=== PATIENT | male | born 1990 | race Caucasian/White ===

== ENCOUNTER 2016-04-28 20:49 | Emergency (ER) | payer OTHER ==
--- NOTE | 2016-04-29 05:46 | ED NURSING NOTES ---
Clinical Report - Nurses [facility] [place] [address] 04/28/2016 20:51 Patient: SAADIA BERG TRIAGE Triage time 20:53 Apr 28 2016. Acuity: LEVEL 2. Chief Complaint: DRUG OVERDOSE. 20:59 04/28/16. Alert. No acute distress. SEPSIS SCREEN: Sepsis Screen. Negative (no infection suspected/documented). SCHUYLER COMA SCORE: Schuyler Coma Scale: 15- eyes open spontaneously (4); best verbal response- oriented x 4 (5); best motor response- obeys commands (6). --20:59 Germaine Perez 20:59 04/28/16. BP: 123/64. HR: 131. RR: 12. O2 saturation: 87%. Temp: 99.5 F. Pain level now 0/10. --20:59 Germaine Perez. Weight: 74.8 kg stated. Height/Length: 70 inches Per Patient. BMI: 23.7. --20:57 Germaine Perez. Medications Novir. Reyataz Oral. Truvada Oral. --20:55 Germaine Perez Suboxone Sublingual. --20:55 Germaine Perez Citalopram Hydrobromide Oral. --20:56 Germaine Perez. Medication/allergy information source: the patient. --20:59 Germaine Perez. Allergies None. --20:56 Germaine Perez. History Arrived by private vehicle. Historian: patient. Accompanied by family. Primary physician (Leeann). This occurred just prior to arrival. ( Pt reports that he took heroin and suboxone today. Aunt reports that patient was "turning blue" and not breathing. Pt reports he shoots up heroin. 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 No suicidal thoughts. PAST MEDICAL HX: Immunizations: up-to-date. SOCIAL HX: Light tobacco smoker (cigarette)- less than 1/2 a pack per day. History of IV drug use: heroin. No alcohol use. FALL RISK ASSESSMENT: Fall risk assessment completed. No fall risk identified. NUTRITIONAL RISK ASSESSMENT: The nutritional risk assessment revealed no deficiencies. FUNCTIONAL ASSESSMENT: Functional assessment: no impairments noted. LEARNING NEEDS ASSESSMENT: The learning needs assessment revealed no barriers. SKIN INTEGRITY ASSESSMENT: Skin integrity risk assessment completed. No skin integrity risk identified. --20:59 Germaine Perez. PROBLEMS: Abscess. Dysuria. Diarrhea. Substance Abuse. HIV Illness. --20:56 Germaine Perez. Assessment The patient states feels the same. --20:59 Gremaine Perez. Interventions ID band on patient. --20:59 Germaine Perez. PHYSICAL ASSESSMENT 21:00 04/28/16. Ambulatory to room. Patient gowned. ( Pupils 1 mm on both sides. Pt drowsy, needs reminders to stay awake and to take deep breathes.). GENERAL / NEURO / PSYCH: Alert. Oriented X 4. Appears in no acute distress. Patient appears calm and cooperative. Gag reflex present. Speech within normal limits. RESPIRATORY: Mild respiratory distress. Respirations not labored. CVS: Cardiac rhythm: sinus tachycardia. Capillary refill less than 2 seconds. GI / : Abdomen soft and nontender. SKIN: Skin intact. Skin is warm and dry. Skin color is within normal limits. Affect appears within normal limits. --21:00 Germaine Perez. NURSING PROGRESS NOTES :04/28/16. The plan of care for this patient has been created. Oxygen administered by nasal cannula at 2 liters. monitoring tech, pulse oximeter, end tidal CO2 monitor and NIBP monitor placed on patient; monitoring tech- Lead II and V5; monitor alarms on. Patient gowned. Head of bed elevated. Reassurance given. Suicide precautions initiated: a safety sweep of the room is ongoing. Room made safe and stripped of hazardous items. Frequent one on one supervision, family at bedside. Two patient identifiers checked. Call light placed in reach. Side rails up x 1. Bed placed in lowest position. Brakes of bed on. Patient ready for evaluation- chart flagged and ED physician notified. --21: Germaine Perez 21:05 04/28/16. BP: 127/72. HR: 132. RR: 8. O2 saturation: 95% on nasal cannula at 4 liters/minute. End tidal CO2: 55 mmHg. Pain level now: 0/10. --21:06 Germaine Perez 21:04/28/2016 Site #1 started via IV in the right antecubital space with an 20g angiocath, with aseptic technique and good blood return; one attempt. Blood drawn: rainbow set. Labeled in the presence of the patient and sent to the lab. Saline lock flushed with 10 mL saline (Done by RN. Tea). --21:07 Germaine Perez 21:04/28/2016 Narcan (Naloxone HCl) IVP 0.4 mg given over 15 second(s) via site #1. Allergies verified and confirmed 5 rights. IV patency established. IV site checked: no pain, redness, or swelling. IV flushed thoroughly pre- and post-medication administration. IVP given by RN. --21:11 Germaine Perez 21:04/28/16. BP: 105/64. HR: 117. RR: 16. O2 saturation: 99% on room air. Pain level now: 0/10. --21:11 Germaine Perez 21:28 04/28/2016 Started bag #1 1000 mL IV Fluids IV NS (Saline); at 1000 mL/hr over 1 hour(s) via site #1 via IV pump. Allergies verified and confirmed 5 rights. IV patency established. IV site checked: no pain, redness, or swelling. IV flushed thoroughly pre- and post-medication administration. --21:38 Germaine Perez 22:04/28/16. BP: 121/64. HR: 106. RR: 16. O2 saturation: 95% on room air. --22:12 Germaine Perez 22:23 04/28/16. ( Pt attempted to collect urine. States that he is unable "I don't have to pee."). --22:53 Germaine Perez 22:54 04/28/16. ( Pt still attempting to provide urine sample.). --22:54 Germaine Perez 22:54 04/28/16. ( Grandmother and aunt remain at bedside.). --22:54 Germaine Perez 22:58 04/28/16. BP: 120/62. HR: 104. O2 saturation: 96%. --22:59 Germaine Perez Care transferred and report received (from Germaine, HERMAN). --23:06 Fatmata Apodaca R.N. 23:00 04/28/16. BP: 123/62. HR: 100. RR: 18. O2 saturation: 96% on room air. Pain level now: 0/10. --23:29 Fatmata Apodaca R.N. pt given another cup of water with isabel crackers. family at bedside. --23:29 Fatmata Apodaca R.N. 22:30 04/28/2016 IV Fluids IV NS Discontinued: bag #1 completed. Total amount infused: 1000 ml mL. IV patency established. IV site checked: no pain, redness, or swelling. IV flushed thoroughly. (by HERMAN Herron). --23:42 Fatmata Apodaca R.N. 23:30 04/28/2016 Started bag #2 1000 mL IV Fluids IV NS (Saline); at 999 mL/hr over 1 hour(s) via site #1 via IV pump. Allergies verified and confirmed 5 rights. IV patency established. IV site checked: no pain, redness, or swelling. IV flushed thoroughly pre- and post-medication administration. --23:30 Fatmata Apodaca R.N. <<STRICKEN ENTRY-- 00:00 04/29/16. BP: 122/76. HR: 110. RR: 18. O2 saturation: 97% at 2 liters/minute. O2 started via nasal cannula. Pain level now: 0/10. --00:51 Fatmata Apodaca R.N. --END STRIKE>> Correction. --00:53 Fatmata Apodaca R.N. 23:30 04/28/16. BP: 122/76. HR: 110. RR: 18 (unlabored). O2 saturation: 97% at 2 liters/minute. O2 started via nasal cannula. --00:54 Fatmata Apodaca R.N. 00:00 04/29/16. BP: 123/72. HR: 105. RR: 20 (unlabored). O2 saturation: 96% at 2 liters/minute. O2 started via nasal cannula. --00:54 Fatmata Apodaca R.N. 00:30 pt's family at bedside waiting for PAT. --00:55 Fatmata Apodaca R.N. 00:30 04/29/16. BP: 129/53. HR: 100. RR: 18 (unlabored). O2 saturation: 96% on room air. Pain level now: 0/10. --00:55 Fatmata Apodaca R.N. 02:00 Yaz, from [facility], in to eval pt. with pt's family at bedside. --02:03 Fatmata Apodaca R.N. urine collected @ 23:58. labeled in pt room, sent to lab. --00:09 Fatmata Apodaca R.N. 01:30 04/29/16. BP: 117/88. HR: 92. RR: 18 (unlabored). O2 saturation: 95% on room air. --02:28 Fatmata Apodaca R.N. 02:30 pt's agreed to go INPT for help after talking with family. --03:01 Fatmata Apodaca R.N. 03:16 04/29/16. BP: 106/51. HR: 72. RR: 16 (unlabored). O2 saturation: 95% on room air. Pain level now: 0/10. --03:17 Fatmata Apodaca R.N. pt up to bathroom supervised. --03:17 Fatmata Apodaca R.N. IV retaped. --03:18 Fatmata Apodaca R.N. 00:30 04/29/2016 IV Fluids IV NS Discontinued: bag #2 completed. Total amount infused: 1000 ml mL. IV patency established. IV site checked: no pain, redness, or swelling. IV flushed thoroughly. --03:33 Fatmata Apodaca R.N. pt resting with partner at bedside. --04:10 Fatmata Apodaca R.N. 04:00 04/29/16. BP: 107/47. HR: 80. RR: 16 (unlabored). O2 saturation: 94% on room air. --04:42 Fatmata Apodaca R.N. 05:00 04/29/16. BP: 105/61. HR: 72. RR: 16 (unlabored). O2 saturation: 95% on room air. Temp: deferred. Pain level now: 0/10. --05:18 Fatmata Apodaca R.N. pt sleeping with HOB elevated. pt's partner at bedside. --05:18 Fatmata Apodaca R.N. 05:45 04/29/16. BP: 106/60. HR: 75. RR: 18 (unlabored). O2 saturation: 95% on room air. Temp: deferred. Pain level now: 4/10. Additional comments: pt c/o headache. --06:29 Fatmata Apodaca R.N. 05:55 04/29/2016 Ibuprofen PO Tablets 600 mg given. Allergies verified and confirmed 5 rights. --06:30 Fatmata Apodaca R.N. DISPOSITION / DISCHARGE 05:55 04/29/2016 Site #1 removed upon discharge. Bandage applied. --06:32 Fatmata Apodaca R.N. Departure time: 0555. Condition at departure: improved. No learning barriers present. Discharge instructions provided and reviewed with the patient. Patient verbalized understanding. Written instructions provided in Indonesian. The patient was discharged by the physician. He was discharged home and accompanied by campus recruiting intern. He left the Emergency Department ambulatory and via private vehicle. Real Estate Loan Officer driving. Medication list reviewed and validated with the patient. --06:32 Fatmata Apodaca R.N. 05:55 04/29/16. BP: deferred. HR: deferred. RR: deferred. O2 saturation: deferred. Temp: deferred. Pain level now deferred. --06:32 Fatmata Apodaca R.N. Locked/Released at 04/29/2016 6:32 by Fatmata Apodaca R.N.
--- NOTE | 2016-04-29 05:46 | ED CLINICAL REPORT ---
Clinical Report - Physicians/Mid Levels [facility] [address] [place] [address] 04/28/2016 20:51 Patient: SAADIA BERG Time Seen: 2100. Arrived- By private vehicle. Historian- patient and family. HISTORY OF PRESENT ILLNESS Chief Complaint: INTOXICATED. Wants to stop drug use. Wants to enter detox program. Symptoms started today. Duration of substance abuse- years. Substances abused: Marijuana and heroin. Last drug use consisted of heroin. (at about 1999--pt had already taken his Suboxone, then used heroin on top of that. Family noticed pt was somnolent and pale, though they do state that pt was arousable. Pt was able to present to the emergency dept in ambulatory condition.). No fever, chills, nausea, vomiting or diarrhea. No abdominal pain, tremors, seizure, agitation or delusions. No hallucinations or suicidal thoughts. Not confused or paranoid. Has not been depressed. The symptoms are described as moderate (PT continued breathing, but appeared pale and steiner, per family.). No injuries noted. Similar symptoms previously: Recent medical care: ( PT was in treatment in January and February, but family states he was d/c after only 45 days (was supposed to be a 90-day program, per family). Mom states pt has desired treatment again, but has been told his insurance doesn't cover this.). Not recently seen/assessed. REVIEW OF SYSTEMS The patient has not had weight loss. No sweats, headache, dizziness, weakness or chest pain. No palpitations, black stools, numbness, bloody stools or sore throat. No cough, difficulty breathing, difficulty with urination, skin abscess or joint pain. No enlarged lymph nodes. No difficulty walking. All systems otherwise negative, except as recorded above. PAST HISTORY Problems: Abscess. Substance Abuse. HIV Illness. Additional Surgeries: no known surgeries. Medications: Citalopram Hydrobromide Oral. Suboxone Sublingual. Novir. Reyataz Oral. Truvada Oral. Allergies: None. SOCIAL HISTORY Smoker- current status unknown. History of drug use: heroin, marijuana. No alcohol use. ADDITIONAL NOTES The nursing notes have been reviewed. PHYSICAL EXAM Vital Signs: 04/28/2016 20:59 BP: 123/64. HR: 131. RR: 12. O2 saturation: 87%. Temp: 99.5 F. Have been reviewed. Appearance: No acute distress. Lethargic. (Pt arouses but quickly falls back asleep in mid-sentence. He does answer questions appropriately, while awake.). Head: Head atraumatic. Eyes: Pupils equal, round and reactive to light. ENT: Normal ENT inspection. Airway intact. Moist mucous membranes. Neck: Normal inspection. CVS: Normal heart rate and rhythm. Heart sounds normal. Pulses normal. Respiratory: No respiratory distress. Breath sounds normal. Abdomen: Soft and nontender. Back: Normal inspection. Skin: Skin warm and dry. Normal skin color. No rash. Normal skin turgor. Extremities: Extremities exhibit normal ROM. No lower extremity edema. Neuro: Alertness is decreased(drowsy). Mood/affect normal. Cranial nerves normal (as tested). No motor deficit. No sensory deficit. (Speech is mildly slurred (seems consistent with pt's level of drowsiness).). LABS, X-RAYS, AND EKG Rhythm Strip #1: Time: (2100). Rate= 113. Sinus tachycardia. Regular rhythm. Narrow QRS complexes. No ectopy. Conduction normal. Normal ST segments and T waves. The study was interpreted by me. Laboratory Tests: CBC w Diff: (CESAR: 04/28/2016 21:02) ( MsgRcvd 04/28/2016 21:31) Final results Test Result Flag Units (Reference) WHITE BLOOD COUNT 15.5 H K/uL (4.5-11.5) RED BLOOD COUNT 4.47 L M/uL (4.50-5.90) HEMOGLOBIN 13.0 L gm/dL (13.5-17.5) HEMATOCRIT 38.7 L % (41.0-53.0) MEAN CELL VOLUME 87 fL (80-100) MEAN CORPUSCULAR HGB 29 pg (26-34) MEAN CORPUSCULAR HGB CONC 34 g/dL (31-37) RED CELL DISTRIBUTION WIDTH 12.9 % (11.6-14.8) PLATELET COUNT 336 K/uL (150-400) NEUTROPHIL % 75.2 H % (50-75) LYMPH % 18.0 L % (25-40) MONO % 6.3 % (3-14) EOSINOPHIL % 0.3 % (0-4) BASOPHIL % 0.2 % (0-2) Urine Drug Screen: (CESAR: 04/28/2016 23:58) ( [facility] [place] Final results Test Result Flag Units (Reference) AMPHETAMINE/METHAMPHETAMINE NEGATIVE (NEGATIVE) BARBITURATE NEGATIVE (NEGATIVE) BENZODIAZEPINE NEGATIVE (NEGATIVE) CANNABINOID POSITIVE H (NEGATIVE) COCAINE NEGATIVE (NEGATIVE) ECSTASY NEGATIVE (NEGATIVE) METHADONE NEGATIVE (NEGATIVE) OPIATE POSITIVE H (NEGATIVE) The urine drug screen is a qualitative screening test fordrug overdose and abuse. All screen results should beconsidered as presumptive.Drugs screened for are as follows:BenzodiazepinesCocaineAmphetamines/MetamphetaminesTHC (Tetrahydrocannabinol)OpiatesBarbituratesEcstasyMethadonePositive results are unconfirmed. For confirmation, notifythe lab for the specimen to be sent to the reference lab.All confirmations must be performed by a differentmethodology.The ingestion of natural herbal and plant productscontaining Ephedra/Ephedra metabolites can produce in urineone or more substances capable of cross reacting withamphetamine/methamphetamine immunoassays. These testsprovide a preliminary result only. A more specificalternative chemical method must be used to obtain aconfirmed analytical result. CMP: (CESAR: 04/28/2016 21:02) ( NjgRcvd 04/28/2016 21:41) Final results Test Result Flag Units (Reference) GLUCOSE 128 H mg/dL (70-110) BUN 21 H mg/dL (7-18) CREATININE 1.6 H mg/dL (0.6-1.3) Estimated GFR 57.22 mL/min Estimated GFR- >60 mL/min Note: Persistent reduction over 3 months in eGFR<60 mL/min/1.73 m2 defines CKD. Patients with eGFR values>=60 mL/min/1.73 m2 may also have CKD if evidence ofpersistent proteinuria. Additional information may be foundat www.[email or web address].org. SODIUM 143 mmol/L (136-145) POTASSIUM 3.9 mmol/L (3.5-5.1) CHLORIDE 104 mmol/L (98-107) CARBON DIOXIDE 28 mmol/L (21-32) CALCIUM 8.2 L mg/dL (8.5-10.1) TOTAL PROTEIN 7.7 g/dL (6.4-8.2) ALBUMIN 4.3 g/dL (3.3-5.0) BILIRUBIN, TOTAL 0.7 mg/dL (0.0-1.0) ALKALINE PHOSPHATASE 99 U/L (46-116) AST (SGOT) 28 U/L (15-37) ALT (SGPT) 27 U/L (12-78) ETHYL ALCOHOL <3 L mg/dL (3-10) THYROID STIMULATING HORMONE 12.859 H uIU/mL (0.34-3.74) . Pulse Oximetry: 04/28/2016 20:59 O2 saturation: 87%. (FIO2 - room air). Interpretation: hypoxemia. Pulse Oximetry #2: 04/28/2016 21:05 O2 saturation: 95%. (FIO2-2 liter/min nasal cannula). Interpretation: normal. PROGRESS AND PROCEDURES Course of Care: Pt was given 0.4 mg of Narcan IV, with good response. Pt became alert, with clear speech, but did not exhibit vomiting or agitation (other than pulling his oxygen off and stating he did not want to be here). Pt remained calm in the ED, and without further deterioration. Pt was observed for several hours, and ultimately, evaluated by the mental health clinician, who did try to get him in to a facility for detox. However, no beds were available for any of the options that would work for him. At this point, it was discussed with the family that the pt would need to continue as an outpatient to seek options for help with his drug abuse. Pt initially had stated that he preferred outpatient care, but with his family's influence, stated that he would be willing to try inpatient again. Pt has been advised to follow up for his elevated TSH, to determine the reason for this, and the appropriate treatment. Patient counseled in person regarding the patient's stable condition, test results, diagnosis and need for follow-up. Concerns were addressed. Old medical records reviewed. Disposition: Discharged. Condition: stable and improved. CLINICAL IMPRESSION Accidental multi-drug overdose with heroin (suboxone). Elevated TSH, possible hypothyroidism. INSTRUCTIONS (We have explored all possible inpatient options in the area, and none are available for tonight. Please follow up, as planned, for outpatient support.). Warnings: GENERAL WARNINGS: Return or contact your physician immediately if your condition worsens or changes unexpectedly, if not improving as expected, or if other problems arise. Your Current Medications: CONTINUE TAKING THE FOLLOWING MEDICATIONS: Citalopram Hydrobromide Oral. Novir*. Reyataz Oral. Suboxone Sublingual. Truvada Oral. Follow-up: Follow up with your doctor as needed. Understanding of the discharge instructions verbalized by patient. (Electronically signed by Lena Gonzalez MD 05/03/2016 17:30)
--- NOTE | 2016-04-29 05:46 | ED NURSING NOTES ---
Clinical Report - Nurses [facility] [place] [address] 04/28/2016 20:51 Patient: SAADIA BERG TRIAGE Triage time 20:53 Apr 28 2016. Acuity: LEVEL 2. Chief Complaint: DRUG OVERDOSE. 20:59 04/28/16. Alert. No acute distress. SEPSIS SCREEN: Sepsis Screen. Negative (no infection suspected/documented). SCHUYLER COMA SCORE: Schuyler Coma Scale: 15- eyes open spontaneously (4); best verbal response- oriented x 4 (5); best motor response- obeys commands (6). --20:59 Germaine Perez 20:59 04/28/16. BP: 123/64. HR: 131. RR: 12. O2 saturation: 87%. Temp: 99.5 F. Pain level now 0/10. --20:59 Germaine Perez. Weight: 74.8 kg stated. Height/Length: 70 inches Per Patient. BMI: 23.7. --20:57 Germaine Perez. Medications Novir. Reyataz Oral. Truvada Oral. --20:55 Germaine Perez Suboxone Sublingual. --20:55 Germaine Perez Citalopram Hydrobromide Oral. --20:56 Germaine Perez. Medication/allergy information source: the patient. --20:59 Germaine Perez. Allergies None. --20:56 Germaine Perez. History Arrived by private vehicle. Historian: patient. Accompanied by family. Primary physician (Leeann). This occurred just prior to arrival. ( Pt reports that he took heroin and suboxone today. Aunt reports that patient was "turning blue" and not breathing. Pt reports he shoots up heroin. 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 No suicidal thoughts. PAST MEDICAL HX: Immunizations: up-to-date. SOCIAL HX: Light tobacco smoker (cigarette)- less than 1/2 a pack per day. History of IV drug use: heroin. No alcohol use. FALL RISK ASSESSMENT: Fall risk assessment completed. No fall risk identified. NUTRITIONAL RISK ASSESSMENT: The nutritional risk assessment revealed no deficiencies. FUNCTIONAL ASSESSMENT: Functional assessment: no impairments noted. LEARNING NEEDS ASSESSMENT: The learning needs assessment revealed no barriers. SKIN INTEGRITY ASSESSMENT: Skin integrity risk assessment completed. No skin integrity risk identified. --20:59 Germaine Perez. PROBLEMS: Abscess. Dysuria. Diarrhea. Substance Abuse. HIV Illness. --20:56 Germaine Perez. Assessment The patient states feels the same. --20:59 Germaine Perez. Interventions ID band on patient. --20:59 Germaine Perez. PHYSICAL ASSESSMENT 21:00 04/28/16. Ambulatory to room. Patient gowned. ( Pupils 1 mm on both sides. Pt drowsy, needs reminders to stay awake and to take deep breathes.). GENERAL / NEURO / PSYCH: Alert. Oriented X 4. Appears in no acute distress. Patient appears calm and cooperative. Gag reflex present. Speech within normal limits. RESPIRATORY: Mild respiratory distress. Respirations not labored. CVS: Cardiac rhythm: sinus tachycardia. Capillary refill less than 2 seconds. GI / : Abdomen soft and nontender. SKIN: Skin intact. Skin is warm and dry. Skin color is within normal limits. Affect appears within normal limits. --21:00 Germaine Perez. NURSING PROGRESS NOTES :04/28/16. The plan of care for this patient has been created. Oxygen administered by nasal cannula at 2 liters. property assessment monitor, pulse oximeter, end tidal CO2 monitor and NIBP monitor placed on patient; cardiac catheterization technologist- Lead II and V5; monitor alarms on. Patient gowned. Head of bed elevated. Reassurance given. Suicide precautions initiated: a safety sweep of the room is ongoing. Room made safe and stripped of hazardous items. Frequent one on one supervision, family at bedside. Two patient identifiers checked. Call light placed in reach. Side rails up x 1. Bed placed in lowest position. Brakes of bed on. Patient ready for evaluation- chart flagged and ED physician notified. --21: Germaine Perez 21:05 04/28/16. BP: 127/72. HR: 132. RR: 8. O2 saturation: 95% on nasal cannula at 4 liters/minute. End tidal CO2: 55 mmHg. Pain level now: 0/10. --21:06 Germaine Perez 21:04/28/2016 Site #1 started via IV in the right antecubital space with an 20g angiocath, with aseptic technique and good blood return; one attempt. Blood drawn: rainbow set. Labeled in the presence of the patient and sent to the lab. Saline lock flushed with 10 mL saline (Done by RN. Tea). --21:07 Germaine Perez 21:04/28/2016 Narcan (Naloxone HCl) IVP 0.4 mg given over 15 second(s) via site #1. Allergies verified and confirmed 5 rights. IV patency established. IV site checked: no pain, redness, or swelling. IV flushed thoroughly pre- and post-medication administration. IVP given by RN. --21:11 Germaine Perez 21:04/28/16. BP: 105/64. HR: 117. RR: 16. O2 saturation: 99% on room air. Pain level now: 0/10. --21:11 Germaine Perez 21:28 04/28/2016 Started bag #1 1000 mL IV Fluids IV NS (Saline); at 1000 mL/hr over 1 hour(s) via site #1 via IV pump. Allergies verified and confirmed 5 rights. IV patency established. IV site checked: no pain, redness, or swelling. IV flushed thoroughly pre- and post-medication administration. --21:38 Germaine Perez 22:04/28/16. BP: 121/64. HR: 106. RR: 16. O2 saturation: 95% on room air. --22:12 Germaine Perez 22:23 04/28/16. ( Pt attempted to collect urine. States that he is unable "I don't have to pee."). --22:53 Germaine Perez 22:54 04/28/16. ( Pt still attempting to provide urine sample.). --22:54 Germaine Perez 22:54 04/28/16. ( Grandmother and aunt remain at bedside.). --22:54 Germaine Perez 22:58 04/28/16. BP: 120/62. HR: 104. O2 saturation: 96%. --22:59 Germaine Perez Care transferred and report received (from Germaine, HERMAN). --23:06 Fatmata Apodaca R.N. 23:00 04/28/16. BP: 123/62. HR: 100. RR: 18. O2 saturation: 96% on room air. Pain level now: 0/10. --23:29 Fatmata Apodaca R.N. pt given another cup of water with isabel crackers. family at bedside. --23:29 Fatmata Apodaca R.N. 22:30 04/28/2016 IV Fluids IV NS Discontinued: bag #1 completed. Total amount infused: 1000 ml mL. IV patency established. IV site checked: no pain, redness, or swelling. IV flushed thoroughly. (by HERMAN Herron). --23:42 Fatmata Apodaca R.N. 23:30 04/28/2016 Started bag #2 1000 mL IV Fluids IV NS (Saline); at 999 mL/hr over 1 hour(s) via site #1 via IV pump. Allergies verified and confirmed 5 rights. IV patency established. IV site checked: no pain, redness, or swelling. IV flushed thoroughly pre- and post-medication administration. --23:30 Fatmata Apodaca R.N. <<STRICKEN ENTRY-- 00:00 04/29/16. BP: 122/76. HR: 110. RR: 18. O2 saturation: 97% at 2 liters/minute. O2 started via nasal cannula. Pain level now: 0/10. --00:51 Fatmata Apodaca R.N. --END STRIKE>> Correction. --00:53 Fatmata Apodaca R.N. 23:30 04/28/16. BP: 122/76. HR: 110. RR: 18 (unlabored). O2 saturation: 97% at 2 liters/minute. O2 started via nasal cannula. --00:54 Fatmata Apodaca R.N. 00:00 04/29/16. BP: 123/72. HR: 105. RR: 20 (unlabored). O2 saturation: 96% at 2 liters/minute. O2 started via nasal cannula. --00:54 Fatmata Apodaca R.N. 00:30 pt's family at bedside waiting for PAT. --00:55 Fatmata Apodaca R.N. 00:30 04/29/16. BP: 129/53. HR: 100. RR: 18 (unlabored). O2 saturation: 96% on room air. Pain level now: 0/10. --00:55 Fatmata Apodaca R.N. 02:00 Yaz, from [facility], in to eval pt. with pt's family at bedside. --02:03 Fatmata Apodaca R.N. urine collected @ 23:58. labeled in pt room, sent to lab. --00:09 Fatmata Apodaca R.N. 01:30 04/29/16. BP: 117/88. HR: 92. RR: 18 (unlabored). O2 saturation: 95% on room air. --02:28 Fatmata Apodaca R.N. 02:30 pt's agreed to go INPT for help after talking with family. --03:01 Fatmata Apodaca R.N. 03:16 04/29/16. BP: 106/51. HR: 72. RR: 16 (unlabored). O2 saturation: 95% on room air. Pain level now: 0/10. --03:17 Fatmata Apodaca R.N. pt up to bathroom supervised. --03:17 Fatmata Apodaca R.N. IV retaped. --03:18 Fatmata Apodaca R.N. 00:30 04/29/2016 IV Fluids IV NS Discontinued: bag #2 completed. Total amount infused: 1000 ml mL. IV patency established. IV site checked: no pain, redness, or swelling. IV flushed thoroughly. --03:33 Fatmata Apodaca R.N. pt resting with partner at bedside. --04:10 Fatmata Apodaca R.N. 04:00 04/29/16. BP: 107/47. HR: 80. RR: 16 (unlabored). O2 saturation: 94% on room air. --04:42 Fatmata Apodaca R.N. 05:00 04/29/16. BP: 105/61. HR: 72. RR: 16 (unlabored). O2 saturation: 95% on room air. Temp: deferred. Pain level now: 0/10. --05:18 Fatmata Apodaca R.N. pt sleeping with HOB elevated. pt's partner at bedside. --05:18 Fatmata Apodaca R.N. 05:45 04/29/16. BP: 106/60. HR: 75. RR: 18 (unlabored). O2 saturation: 95% on room air. Temp: deferred. Pain level now: 4/10. Additional comments: pt c/o headache. --06:29 Fatmata Apodaca R.N. 05:55 04/29/2016 Ibuprofen PO Tablets 600 mg given. Allergies verified and confirmed 5 rights. --06:30 Fatmata Apodaca R.N. DISPOSITION / DISCHARGE 05:55 04/29/2016 Site #1 removed upon discharge. Bandage applied. --06:32 Fatmata Apodaca R.N. Departure time: 0555. Condition at departure: improved. No learning barriers present. Discharge instructions provided and reviewed with the patient. Patient verbalized understanding. Written instructions provided in Uzbek. The patient was discharged by the physician. He was discharged home and accompanied by bilingual speech language pathologist. He left the Emergency Department ambulatory and via private vehicle. [employer] driving. Medication list reviewed and validated with the patient. --06:32 Fatmata Apodaca R.N. 05:55 04/29/16. BP: deferred. HR: deferred. RR: deferred. O2 saturation: deferred. Temp: deferred. Pain level now deferred. --06:32 Fatmata Apodaca R.N. Locked/Released at 04/29/2016 6:32 by Fatmata Apodaca R.N.
--- NOTE | 2016-04-29 05:46 | ED ORDER SUMMARY ---
..... Patient: SAADIA BERG OrderSheet [facility] VisitID: [id number] [place] [address] 25y, M Registration Date/Time: 04/28/2016 ORDER SHEET Weight: 74.8 kg (stated) Allergies: None GENERAL ORDERS: Youth Development Professional (Continuous) (:04/28/2016 Zen QUINONEZ) (21:17 IJurca ER Tech1) CBC w Diff Urgent (:04/28/2016 Zen QUINONEZ) (Ack 21:17 SONDRAurca ER Tech1) (21:21 EHassan R.N.) CMP Urgent (:04/28/2016 Zen QUINONEZ) (Ack 21:17 SONDRAurca ER Tech1) (21:21 EHassan R.N.) Urine Drug Screen Urgent (:04/28/2016 Zen QUINONEZ) (Ack 21:17 Luisa ER Tech1) (0:45 RCollier R.N.) Ethyl Alcohol Urgent (:04/28/2016 Zen QUINONEZ) (Ack 21:17 SONDRAurca ER Tech1) (21:21 EHassan R.N.) TSH Urgent (:04/28/2016 Zen QUINONEZ) (Ack 21:17 SONDRAurca ER Tech1) (21:21 EHassan R.N.) Oxygen (2 L/min) (NC) (:04/28/2016 Zen QUINONEZ) (21:17 SONDRAurcsusan ER Tech1) Pulse oximeter (:04/28/2016 Zen QUINONEZ) (21:17 IJurca ER Tech1) MEDICATION ORDERS: Ibuprofen PO 600 mg (NOW) (06:30 04/29/2016 HKone R.N. verbal order read back to Zen QUINONEZ) (6:30 MINHone R.N.) IV FLUIDS: Narcan IV 0.4 mg (HIGH ALERT MEDICATION, NOW) (21:10 04/28/2016 Nusrat verbal order read back to Zen QUINONEZ) (21:11 ASchmvenita) IV NS : initial bolus 1000 mL (1000 mL/hr), then none - (NOW) (:04/28/2016 Zen QUINONEZ) (Ack 21:18 Syeda R.NMack) (21:38 [facility]) IV NS : initial bolus 1000 mL (1000 mL/hr), then none - (NOW) (23:26 04/28/2016 Zen QUINONEZ) (23:30 Dennis R.N.) ORDER SHEET NOTES: [Electronically signed by Fatmata Apodaca R.N. (06:32 04/29/2016)] [Electronically signed by Lena Gonzalez MD (17:30 05/03/2016)] [Electronically locked/signed by Fatmata Apodaca R.N. (06:32 04/29/2016)]
--- NOTE | 2016-04-29 05:46 | ED ORDER SUMMARY ---
..... Patient: SAADIA BERG OrderSheet [facility] VisitID: [id number] [place] [address] 25y, M Registration Date/Time: 04/28/2016 ORDER SHEET Weight: 74.8 kg (stated) Allergies: None GENERAL ORDERS: Administrative Associate (Continuous) (:04/28/2016 Zen QUINONEZ) (21:17 IJurca ER Tech1) CBC w Diff Urgent (:04/28/2016 Zen QUINONEZ) (Ack 21:17 SONDRAurca ER Tech1) (21:21 EHassan R.N.) CMP Urgent (:04/28/2016 Zen QUINONEZ) (Ack 21:17 SONDRAurca ER Tech1) (21:21 EHassan R.N.) Urine Drug Screen Urgent (:04/28/2016 Zen QUINONEZ) (Ack 21:17 Luisa ER Tech1) (0:45 RCollier R.N.) Ethyl Alcohol Urgent (:04/28/2016 Zen QUINONEZ) (Ack 21:17 SONDRAurca ER Tech1) (21:21 EHassan R.N.) TSH Urgent (:04/28/2016 Zen QUINONEZ) (Ack 21:17 SONDRAurca ER Tech1) (21:21 EHassan R.N.) Oxygen (2 L/min) (NC) (:04/28/2016 Zen QUINONEZ) (21:17 SONDRAurcsusan ER Tech1) Pulse oximeter (:04/28/2016 Zen QUINONEZ) (21:17 IJurca ER Tech1) MEDICATION ORDERS: Ibuprofen PO 600 mg (NOW) (06:30 04/29/2016 HKone R.N. verbal order read back to Zen QUINONEZ) (6:30 MINHone R.N.) IV FLUIDS: Narcan IV 0.4 mg (HIGH ALERT MEDICATION, NOW) (21:10 04/28/2016 Nusrat verbal order read back to Zen QUINONEZ) (21:11 ASchmvenita) IV NS : initial bolus 1000 mL (1000 mL/hr), then none - (NOW) (:04/28/2016 Zen QUINONEZ) (Ack 21:18 Syeda R.NMack) (21:38 [facility]) IV NS : initial bolus 1000 mL (1000 mL/hr), then none - (NOW) (23:26 04/28/2016 Zen QUINONEZ) (23:30 Dennis R.N.) ORDER SHEET NOTES: [Electronically signed by Fatmata Apodaca R.N. (06:32 04/29/2016)] [Electronically signed by Lena Gonzalez MD (17:30 05/03/2016)] [Electronically locked/signed by Fatmata Apodaca R.N. (06:32 04/29/2016)]
--- NOTE | 2016-05-03 17:30 | ED DISCHARGE INSTRUCTIONS ---
Patient: SAADIA BERG General Instructions [facility] VisitID: [id number] [place] [address] 25y, M Registration Date/Time: 04/28/2016 Accidental multi-drug overdose with heroin (suboxone). INSTRUCTIONS (We have explored all possible inpatient options in the area, and none are available for tonight. Please follow up, as planned, for outpatient support.). Warnings: GENERAL WARNINGS: Return or contact your physician immediately if your condition worsens or changes unexpectedly, if not improving as expected, or if other problems arise. Your Current Medications: CONTINUE TAKING THE FOLLOWING MEDICATIONS: Citalopram Hydrobromide Oral. Novir*. Reyataz Oral. Suboxone Sublingual. Truvada Oral. Follow-up: Follow up with your doctor as needed. Understanding of the discharge instructions verbalized by patient. ADDITIONAL INFORMATION Accidental Ingestion:Non-Toxic [Adult] You have been evaluated and treated for taking too much of a medicine or swallowing a chemical product. There is no sign of toxic effect at this time. It is very unlikely that any new symptoms will appear. As a safeguard, you must be alert for symptoms during the next 24 hours (see below). The exact symptom will depend on what was swallowed. Home Care: If LIQUID CHARCOAL was given to neutralize what was swallowed, it will cause a black color to the stools for 1-2 days. Usually, a laxative (sorbitol) is given with charcoal to speed the removal of any toxins from the intestinal tract. This may cause diarrhea for up to 24 hours. If no laxative was given with charcoal, you may get constipated. If this occurs, you may take an pkif-fpx-jilgexw laxative such as Dulcolax pills or suppository. Prevention: Keep medicines, pesticides, and other household chemicals in their original containers. Clearly jd all harmful products if a different bottle is used. Follow Up with your doctor if all symptoms do not resolve within 24 hours or if constipation is not relieved by one or two doses of laxatives. Get Prompt Medical Attention if any of the following occur: Excess drowsiness or inability to be awakened Rapid heart beat, shakiness or seizure Fast breathing (over 25 breaths/minute) or slow breathing (less than 8 breaths/minute) Feeling shortness of breath Fever of 100.4F (38C) or higher, or as directed by your healthcare provider Vomiting or diarrhea for more than 24 hours Blood in stools or vomit (black or red color) Chest or abdominal pain Dizziness, weakness or fainting You have been given the following additional information: Overdose, Accidental (Adult) (Electronically signed by Lena Gonzalez MD 05/03/2016 17:30)
--- NOTE | 2016-05-03 17:30 | ED DISCHARGE INSTRUCTIONS ---
Patient: SAADIA BERG General Instructions [facility] VisitID: [id number] [place] [address] 25y, M Registration Date/Time: 04/28/2016 Accidental multi-drug overdose with heroin (suboxone). INSTRUCTIONS (We have explored all possible inpatient options in the area, and none are available for tonight. Please follow up, as planned, for outpatient support.). Warnings: GENERAL WARNINGS: Return or contact your physician immediately if your condition worsens or changes unexpectedly, if not improving as expected, or if other problems arise. Your Current Medications: CONTINUE TAKING THE FOLLOWING MEDICATIONS: Citalopram Hydrobromide Oral. Novir*. Reyataz Oral. Suboxone Sublingual. Truvada Oral. Follow-up: Follow up with your doctor as needed. Understanding of the discharge instructions verbalized by patient. ADDITIONAL INFORMATION Accidental Ingestion:Non-Toxic [Adult] You have been evaluated and treated for taking too much of a medicine or swallowing a chemical product. There is no sign of toxic effect at this time. It is very unlikely that any new symptoms will appear. As a safeguard, you must be alert for symptoms during the next 24 hours (see below). The exact symptom will depend on what was swallowed. Home Care: If LIQUID CHARCOAL was given to neutralize what was swallowed, it will cause a black color to the stools for 1-2 days. Usually, a laxative (sorbitol) is given with charcoal to speed the removal of any toxins from the intestinal tract. This may cause diarrhea for up to 24 hours. If no laxative was given with charcoal, you may get constipated. If this occurs, you may take an vxck-wsj-iyrpjkz laxative such as Dulcolax pills or suppository. Prevention: Keep medicines, pesticides, and other household chemicals in their original containers. Clearly jd all harmful products if a different bottle is used. Follow Up with your doctor if all symptoms do not resolve within 24 hours or if constipation is not relieved by one or two doses of laxatives. Get Prompt Medical Attention if any of the following occur: Excess drowsiness or inability to be awakened Rapid heart beat, shakiness or seizure Fast breathing (over 25 breaths/minute) or slow breathing (less than 8 breaths/minute) Feeling shortness of breath Fever of 100.4F (38C) or higher, or as directed by your healthcare provider Vomiting or diarrhea for more than 24 hours Blood in stools or vomit (black or red color) Chest or abdominal pain Dizziness, weakness or fainting You have been given the following additional information: Overdose, Accidental (Adult) (Electronically signed by Lena Gonzalez MD 05/03/2016 17:30)
--- NOTE | 2016-05-03 17:30 | ED MAR SUMMARY ---
..... Medication Administration Record [facility] [address] [place] [address] Patient: SAADIA BERG Visit ID: [id number] 25y, M Weight: 74.8 kg Height/Length: 70 in BMI: 23.7 ALLERGIES: None Given 21:11 04/28/2016 Germaine Preez, Medication Administered: NARCAN [IVP] (NALOXONE HCL), Dose: 0.4 mg IVP over 15 second(s), Site: #1 right AC. Medication Ordered: Narcan IV 0.4 mg (HIGH ALERT MEDICATION, NOW). Start 21:28 04/28/2016 Germaine Perez,, Stop 22:30 04/28/2016 Fatmata Apodaca RMackN. Medication Administered: IV NS (SALINE), Dose: IV Fluids over 1 hour(s), Rate: 1000 mL/hr, Dispensed: 1000 mL bag, Site: #1 right AC. Medication Ordered: IV NS : initial bolus 1000 mL (1000 mL/hr), then none - (NOW). Start 23:30 04/28/2016 Fatmata Apodaca RMackN., Stop 00:30 04/29/2016 Fatmata Apodaca R.N. Medication Administered: IV NS (SALINE), Dose: IV Fluids over 1 hour(s), Rate: 999 mL/hr, Dispensed: 1000 mL bag, Site: #1 right AC. Medication Ordered: IV NS : initial bolus 1000 mL (1000 mL/hr), then none - (NOW). Given 05:55 04/29/2016 Fatmata Apodaca RMackN. Medication Administered: IBUPROFEN [PO], Dose: 600 mg Tablets PO. Medication Ordered: Ibuprofen PO 600 mg (NOW).
--- NOTE | 2016-05-03 17:30 | ED MAR SUMMARY ---
..... Medication Administration Record [facility] [address] [place] [address] Patient: SAADIA BERG Visit ID: [id number] 25y, M Weight: 74.8 kg Height/Length: 70 in BMI: 23.7 ALLERGIES: None Given 21:11 04/28/2016 Germaine Perez, Medication Administered: NARCAN [IVP] (NALOXONE HCL), Dose: 0.4 mg IVP over 15 second(s), Site: #1 right AC. Medication Ordered: Narcan IV 0.4 mg (HIGH ALERT MEDICATION, NOW). Start 21:28 04/28/2016 Germaine Perez,, Stop 22:30 04/28/2016 Fatmata Apodaca RMackN. Medication Administered: IV NS (SALINE), Dose: IV Fluids over 1 hour(s), Rate: 1000 mL/hr, Dispensed: 1000 mL bag, Site: #1 right AC. Medication Ordered: IV NS : initial bolus 1000 mL (1000 mL/hr), then none - (NOW). Start 23:30 04/28/2016 Fatmata Apodaca RMackN., Stop 00:30 04/29/2016 Fatmata Apodaca R.N. Medication Administered: IV NS (SALINE), Dose: IV Fluids over 1 hour(s), Rate: 999 mL/hr, Dispensed: 1000 mL bag, Site: #1 right AC. Medication Ordered: IV NS : initial bolus 1000 mL (1000 mL/hr), then none - (NOW). Given 05:55 04/29/2016 Fatmata Apodaca RMackN. Medication Administered: IBUPROFEN [PO], Dose: 600 mg Tablets PO. Medication Ordered: Ibuprofen PO 600 mg (NOW).
--- NOTE | 2016-05-03 17:30 | ED MED RECONCILIATION SUMMARY ---
Patient: ASADIA BERG Medication Reconciliation Report [facility] VisitID: [id number] [place] [address] 25y, M Registration Date/Time: 04/28/2016 Weight: 74.8 kg Height/Length: 70 in. BMI: 23.7 ALLERGIES: None The patient's Home Medications are listed below: CONTINUE TAKING THE FOLLOWING MEDICATIONS: Citalopram Hydrobromide Oral Novir Reyataz Oral Suboxone Sublingual Truvada Oral The source(s) of the original Home Medication information: patient The following Medications were given to the patient in the Emergency Department: Narcan [IVP] IVP 0.4 mg, administered: 04/28/2016 9:11:00 PM IV NS IV Fluids bolus 0, then 1000 mL/hr, administered: 04/28/2016 9:28:00 PM IV NS IV Fluids bolus 0, then 999 mL/hr, administered: 04/28/2016 11:30:00 PM Ibuprofen [PO] PO 600 mg, administered: 04/29/2016 5:55:00 AM The following Medications were prescribed to the patient: None.
--- NOTE | 2016-05-03 17:30 | ED MED RECONCILIATION SUMMARY ---
Patient: SAADIA BERG Medication Reconciliation Report [facility] VisitID: [id number] [place] [address] 25y, M Registration Date/Time: 04/28/2016 Weight: 74.8 kg Height/Length: 70 in. BMI: 23.7 ALLERGIES: None The patient's Home Medications are listed below: CONTINUE TAKING THE FOLLOWING MEDICATIONS: Citalopram Hydrobromide Oral Novir Reyataz Oral Suboxone Sublingual Truvada Oral The source(s) of the original Home Medication information: patient The following Medications were given to the patient in the Emergency Department: Narcan [IVP] IVP 0.4 mg, administered: 04/28/2016 9:11:00 PM IV NS IV Fluids bolus 0, then 1000 mL/hr, administered: 04/28/2016 9:28:00 PM IV NS IV Fluids bolus 0, then 999 mL/hr, administered: 04/28/2016 11:30:00 PM Ibuprofen [PO] PO 600 mg, administered: 04/29/2016 5:55:00 AM The following Medications were prescribed to the patient: None.
== END 2016-04-29 05:55 | disposition home or self-care (01) ==
LOC: ED SRH 20:49
DX: T40.1X1A Poisoning by heroin, accidental (unintentional), initial encounter (principal); T40.691A Poisoning by other narcotics, accidental (unintentional), initial encounter; R94.6 Abnormal results of thyroid function studies; X58.XXXA Exposure to other specified factors, initial encounter; Y93.89 Activity, other specified; Y99.9 Unspecified external cause status; Y92.9 Unspecified place or not applicable; B20 Human immunodeficiency virus [HIV] disease; Z79.899 Other long term (current) drug therapy
CPT/HCPCS: 83526; 90100; 92010; 92760; 92761; 92762; 92763; 92764; 92765; 92766; 92767; 93140; 95059